=== PATIENT | male | born 2000 | race African-American/Black ===

== ENCOUNTER 2019-12-31 09:48 | Emergency (ER) | payer OTHER ==
[~2019-12-31] VITALS: Ht 177.8 cm; Wt 91.0 kg
[2019-12-31] MEDS ORDERED: ACETAMINOPHEN 325MG TABLET PO ONE (10:45)
[2019-12-31 12:11] VITALS: BP 160/90
== END 2019-12-31 12:12 | disposition home or self-care (01) ==
LOC: ER 09:48
DX: S00.512A Abrasion of oral cavity, initial encounter (principal); M79.641 Pain in right hand; F12.10 Cannabis abuse, uncomplicated; Z88.1 Allergy status to other antibiotic agents; V43.52XA Car driver injured in collision with other type car in traffic accident, initial encounter; Y93.89 Activity, other specified; Y92.488 Other paved roadways as the place of occurrence of the external cause
CPT/HCPCS: 70486; 71045; 73130; 93005; 99285